=== PATIENT | female | born 1980 | race Two or more races ===

== ENCOUNTER 2018-08-28 10:51 | Emergency (ER) | payer MEDICARE, MEDICAID ==
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
== END 2018-08-28 13:05 | disposition home or self-care (01) ==
LOC: VM.ED 10:51
DX: M62.838 Other muscle spasm (principal); M62.830 Muscle spasm of back; F41.9 Anxiety disorder, unspecified; F32.9 Major depressive disorder, single episode, unspecified; Z88.8 Allergy status to other drugs, medicaments and biological substances; Z91.040 Latex allergy status; Z91.018 Allergy to other foods; Z88.2 Allergy status to sulfonamides; Z79.899 Other long term (current) drug therapy; V89.2XXA Person injured in unspecified motor-vehicle accident, traffic, initial encounter
CPT/HCPCS: 70450; 72125; 72128; 72131; 99284-25; 99284-GF